=== PATIENT | female | born 1930 | race Caucasian/White ===

== ENCOUNTER 2017-04-11 02:33 | Emergency (ER) | payer MEDICARE, MEDICAID ==
[2017-04-11] MEDS ORDERED: Meropenem 1 GM in Sodium Chloride 0.9% 100 ML IV ONE (02:34)
[2017-04-11] MEDS ORDERED: Furosemide 40 MG/4 ML VIAL IV ONE (02:34)
[2017-04-11] MEDS ORDERED: Ipratropium 0.02% 0.5 MG/2.5 ML Neb Soln INH ONE (02:34)
[2017-04-11 05:17] LABS: CHLORIDE,CL 97 mmol/L (101-111); SODIUM,NA 143 mmol/L (135-145)
[2017-04-11 11:43] LABS: O2 DELIVERY DEVICE NASAL CANNULA
[2017-04-11 11:54] LABS: O2 SATURATION ARTERIAL 93 % (95-100); PCO2 ARTERIAL 77 mmHg (35-45); PO2 ARTERIAL 75 mmHg (70-100)
[2017-04-11 11:55] LABS: ALLEN TEST pos; BASE EXCESS ARTERIAL 8 mmol/L ((-2)-(+3)); O2 FLOW RATE 4
--- NOTE | 2017-04-12 12:33 | EKG ---
04/11/2017 - KARLA RUBI - This 12-lead EKG shows normal sinus rhythm with sinus tachycardia with heart rate of 110 and KS interval of 184. No significant ST elevation or ST depression noted on this 12-lead EKG. Lead displacement on V6 noted. Nonspecific ST-T wave changes noted on leads V4 and V5. [facility] /[id number]
== END 2017-04-11 05:47 ==
LOC: DL.ED 02:33
DX: I50.9 Heart failure, unspecified (principal); R09.02 Hypoxemia; J44.9 Chronic obstructive pulmonary disease, unspecified; J18.9 Pneumonia, unspecified organism; Z86.73 Personal history of transient ischemic attack (TIA), and cerebral infarction without residual deficits
CPT/HCPCS: 36415; 36600; 70450; 71010; 80053; 82550; 82803; 83605; 83880; 84484; 85025; 85610; 87040; 96365; 96375; 99285; J1940; J2185; J7050; 99284